=== PATIENT | female | born 1955 | race Caucasian/White ===

== ENCOUNTER 2016-04-10 09:45 | Outpatient (CLI) | payer BC | END 2016-04-10 09:46 | disposition home or self-care (01) | DX: Z12.31 Encounter for screening mammogram for malignant neoplasm of breast (principal); Z80.3 Family history of malignant neoplasm of breast ==

== ENCOUNTER 2016-04-10 09:46 | Outpatient (CLI) | payer BC | END 2016-04-10 09:47 | disposition home or self-care (01) | DX: M85.89 Other specified disorders of bone density and structure, multiple sites (principal); Z78.0 Asymptomatic menopausal state ==

== ENCOUNTER 2017-05-14 09:47 | Outpatient (CLI) | payer BC ==
--- NOTE | 2017-05-15 16:39 | Mammography Report ---
DIGITAL SCREENING MAMMOGRAM: 05/14/2017 CLINICAL INDICATION: A 61-year-old nulliparous patient with family history of breast cancer, history of benign left breast biopsy, for screening. COMPARISON: 03/2016, 01/2015, 01/2014, 11/2012, 11/2011, 08/2010, 07/2009. TECHNIQUE: Routine CC and MLO projections were obtained of the breasts. Bilateral laterally exaggerated craniocaudal views. FINDINGS: The breasts again demonstrate heterogeneously dense fibroglandular parenchyma bilaterally. Coarse and punctate, typically benign calcifications are present. Postbiopsy changes in the left upper outer posterior breast are stable. No suspicious masses, clustered microcalcifications, or regions of architectural distortion are identified. IMPRESSION: BENIGN FINDINGS. RECOMMENDATION: ROUTINE ANNUAL SCREENING UNLESS OTHERWISE CLINICALLY INDICATED. BIRADS CATEGORY 2-BENIGN FINDINGS. STANDARD QUALIFYING STATEMENTS: 1. This examination was reviewed with the aid of Computer-Aided Detection (CAD). 2. A negative or benign imaging report should not delay biopsy if clinically suspicious findings are present. Consider surgical consultation if warranted. More than 5% of cancers are not identified by imaging. 3. Dense breasts may obscure an underlying neoplasm. TD: 05/15/2017 16:38
== END 2017-05-14 09:48 | disposition home or self-care (01) ==
LOC: DI 09:47
PROVIDERS: ATTEND Physician Assistant
DX: Z12.31 Encounter for screening mammogram for malignant neoplasm of breast (principal); Z80.3 Family history of malignant neoplasm of breast
CPT/HCPCS: 77067

== ENCOUNTER 2017-05-14 10:00 | Outpatient (CLI) | payer BC ==
--- NOTE | 2017-05-14 13:54 | XRAY Report ---
THREE VIEW LEFT KNEE: 05/14/2017 CLINICAL INDICATION: Pain. FINDINGS: AP, lateral, sunrise views of the left knee demonstrate no evidence of fracture or dislocation. The joint spaces are preserved. No effusion is present. IMPRESSION: NORMAL LEFT KNEE. TD: 05/14/2017 13:53
== END 2017-05-14 10:01 | disposition home or self-care (01) ==
LOC: DI 10:00
PROVIDERS: ATTEND Physician Assistant
DX: M25.562 Pain in left knee (principal)

== ENCOUNTER 2018-05-19 12:28 | Outpatient (CLI) | payer BC, OTHER ==
--- NOTE | 2018-05-20 08:30 | Mammography Report ---
Reason: SCREENING MAMMO Procedure Date: 05/19/2018 Accession Number: [id number] / [id number] Procedure: NATHALIA - Screening Mammo w/Benjamin CPT Code: FULL RESULT: EXAM: Screening Mammo w/Benjamin DATE: 05/19/2018 1:02 PM CLINICAL HISTORY: Screening encounter. History of nulliparity and history of benign left breast biopsy. Family history of breast cancer in a sister in her 20s. TECHNIQUE: Bilateral CC and MLO views were obtained. A left laterally exaggerated CC view was obtained. COMPARISON: 05/14/2017 through 12/02/2012. FINDINGS: The breasts demonstrate heterogeneously dense fibroglandular parenchyma bilaterally. Postbiopsy changes in the left breast are stable. Coarse typically benign calcifications are noted. No suspicious masses, clustered microcalcifications, or regions of architectural distortion are identified. IMPRESSION: Benign findings RECOMMENDATION: Routine annual screening unless otherwise clinically indicated. BIRADS CATEGORY 2: Benign findings STANDARD QUALIFYING STATEMENTS: 1. This examination was not reviewed with the aid of Computer-Aided Detection (CAD). 2. A negative or benign imaging report should not delay biopsy if clinically suspicious findings are present. Consider surgical consultation if warrented. More than 5% of cancers are not identified by imaging. 3. Dense breasts may obscure an underlying neoplasm. 4. This examination was reviewed with the aid of 3D breast imaging (tomosynthesis).
== END 2018-05-19 12:29 | disposition home or self-care (01) ==
LOC: DI 12:28
DX: Z12.31 Encounter for screening mammogram for malignant neoplasm of breast (principal); Z80.3 Family history of malignant neoplasm of breast
CPT/HCPCS: 77063; 77067

== ENCOUNTER 2018-07-14 11:36 | Outpatient (CLI) | payer OTHER ==
--- NOTE | 2018-07-14 16:21 | XRAY Report ---
Reason: LEFT FOOT PAIN Procedure Date: 07/14/2018 Accession Number: [id number] / [id number] Procedure: XR - Foot 3 View RT CPT Code: FULL RESULT: EXAM: RIGHT FOOT RADIOGRAPHY EXAM DATE: 07/14/2018 11:55 AM. CLINICAL HISTORY: LEFT FOOT PAIN. COMPARISON: FOOT 3 VIEW LT 07/14/2018 11:47 AM. TECHNIQUE: 3 views. FINDINGS: Bones: Normal. No fractures or bone lesions. Joints: Right first metatarsophalangeal joint space narrowing. Soft Tissues: Normal. No soft tissue swelling. IMPRESSION: Right first metatarsophalangeal joint space narrowing. RADIA
--- NOTE | 2018-07-15 14:44 | XRAY Report ---
Reason: LEFT FOOT PAIN Procedure Date: 07/14/2018 Accession Number: [id number] / [id number] Procedure: XR - Foot 3 View LT CPT Code: FULL RESULT: EXAM: LEFT FOOT RADIOGRAPHY EXAM DATE: 07/14/2018 11:55 AM. CLINICAL HISTORY: Diffuse left foot pain. COMPARISON: FOOT 3 VIEW RT 07/14/2018 11:47 AM. TECHNIQUE: 3 views. FINDINGS: Bones: No acute fracture or bone lesion evident. Joints: There is mild first MTP joint space narrowing and early lateral osteophyte similar to the contralateral right foot. The remainder of the joint spaces are unremarkable. No malalignment. Soft Tissues: 2 linear metallic density foreign bodies are present in the plantar lateral midfoot soft tissues and together measure up to approximately 2 cm in length. A lateral bunion at the fifth MTP joint is noted. IMPRESSION: 1. 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 2. Posterolateral subcutaneous soft tissue metallic linear foreign bodies. RADIA
== END 2018-07-14 11:37 | disposition home or self-care (01) ==
LOC: DI 11:36
PROVIDERS: ATTEND Physician Assistant
DX: M19.072 Primary osteoarthritis, left ankle and foot (principal); M19.071 Primary osteoarthritis, right ankle and foot; M79.5 Residual foreign body in soft tissue

== ENCOUNTER 2019-06-08 07:36 | Outpatient (CLI) | payer MEDICARE, OTHER ==
--- NOTE | 2019-06-09 16:34 | Mammography Report ---
Reason: ROUTINE MAMMO Procedure Date: 06/08/2019 Accession Number: [id number] / [id number] Procedure: NATHALIA - Screening Mammo w/Benjamin CPT Code: Final Report FULL RESULT: EXAM: Screening Mammo w/Benjamin DATE: 06/08/2019 8:26 AM CLINICAL HISTORY: Routine screening. Nulliparous patient. History of lumpectomy and radiation therapy. Sister with breast cancer TECHNIQUE: (B) - Bilateral CC and MLO views were obtained. COMPARISON: 05/19/2018, 05/14/2017, 04/10/2016, 02/02/2015, 02/02/2014, 12/11/2012, 12/02/2012 and 11/26/2011 PARENCHYMAL PATTERN: (D) - The breasts demonstrate heterogeneously dense fibroglandular parenchyma bilaterally. FINDINGS: No significant interval change. Post therapeutic change left upper outer quadrant similar to previous. There are no suspicious masses, calcifications, or areas of distortion. There is motion on the right MLO projection and a technical repeat is suggested. IMPRESSION: Incomplete examination. BI-RADS category 0. Needs technical repeat right MLO projection for motion. RECOMMENDATION: (ADDMAM) - Recommend additional mammographic views. Repeat right MLO projection for motion. BI-RADS CATEGORY: (0) - Incomplete Examination - need additional evaluation. STANDARD QUALIFYING STATEMENTS: 1. This examination was not reviewed with the aid of Computer-Aided Detection (CAD). 2. A negative or benign imaging report should not preclude biopsy if clinically suspicious findings are present. 3. Dense breasts may obscure an underlying neoplasm. 4. This examination was reviewed with the aid of 3D breast imaging (tomosynthesis).
== END 2019-06-08 07:37 | disposition home or self-care (01) ==
LOC: DI 07:36
DX: Z12.31 Encounter for screening mammogram for malignant neoplasm of breast (principal); Z80.3 Family history of malignant neoplasm of breast
CPT/HCPCS: 77063; 77067

== ENCOUNTER 2019-08-18 12:51 | Outpatient (CLI) | payer MEDICARE, OTHER ==
--- NOTE | 2019-08-26 09:15 | Mammography Report ---
UNILATERAL LEFT DIGITAL SCREENING MAMMOGRAM 3D/2D WITH CAD: 08/18/2019 CLINICAL: Patient here for technical repeat Left MLO due to motion on screening done 06/08/19. Comparison is made to exams dated: 06/08/2019 mammogram, 05/29/2018 mammogram, 05/14/2017 mammogram, mammogram, and 02/02/2015 mammogram - [facility]. The tissue of left breas t is heterogeneously dense. This may lower the sensitivity of mammography. Current study was also evaluated with a Computer Aided Detection (CAD) system. There are benign calcifications in the left breast. There also are benign post operative findings in the left breast. No significant masses, calcifications, or other findings are seen in the breast. There has been no significant interval change. IMPRESSION: There is no mammographic evidence of malignancy. A 1 year screening mammogram is recommended. This exam was interpreted at Station ID: [id number]. NOTE: For mammograms, a report in lay terms will be sent to the patient. Approximately 15% of breast malignancies will not be visualized mammographically. In the management of a palpable breast mass, a negative mammogram must not discourage biopsy of a clinically suspicious lesion. Electronically Signed By: Carlos Palacios M.D. ddp/penjuve:08/25/2019 12:53:42 ACR BI-RADS Category 2: Benign Finding(s) 3342F PARENCHYMAL PATTERN: (D) - The breast(s) demonstrate(s) heterogeneously dense fibroglandular dean woodard. BI-RADS CATEGORY: (2) - 2 RECOMMENDATION: (ANNUAL) - Recommend routine annual screening mammography. [id number] 1 year screening LATERALITY: (B)
== END 2019-08-18 12:52 | disposition home or self-care (01) ==
LOC: DI 12:51
DX: Z12.31 Encounter for screening mammogram for malignant neoplasm of breast (principal)
CPT/HCPCS: 77063; 77067

== ENCOUNTER 2020-03-17 09:08 | Outpatient (CLI) | payer MEDICARE, OTHER ==
--- NOTE | 2020-03-17 10:35 | DEXA Report ---
PROCEDURE: Dexa Spine and/or Hip INDICATIONS: OSTEOPENIA TECHNIQUE: Dual energy x-ray absorptiometry (DXA) was performed on a BioCision System. Regions measur ed are the AP Spine, femoral neck, and if needed forearm. COMPARISON: None. FINDINGS: Lumbar Spine: Bone Mineral Density 1.208 g/cm/cm,T score -1.4, osteopenia Left total Hip: Bone Mineral Density 0.850 g/cm/cm,T score -1.3, osteopenia Left Femoral Neck: Bone Mineral Density 0.823 g/cm/cm, T score -1.5, osteopenia (T score greater or equal to -1.0: NORMAL) (T score from -1.1 to -2.4: OSTEOPENIA) (T score less than or equal to -2.5 to: OSTEOPOROSIS) Impression: Bone mineral density consistent with osteopenia. Bone mineral density in the lumbar spine is -3.4% compared to the prior bone scan on 04/10/2016 suggesting interval bone loss. Bone mineral de nsity in the left proximal femur is not significantly changed. Patients with diagnosis of osteoporosis or osteopenia should have regular bone mineral density assess ment. For those eligible for Medicare, routine testing is allowed once every 2 years. Testing frequ ency can be increased for patients who have rapidly progressing disease or for those who are receivin g medical therapy to restore bone mass. Reviewed by: Yogesh Baldwin on 03/17/2020 10:33 AM MEGHNA Approved by: Yogesh Baldwin on 03/17/2020 10:33 AM PST Station ID: [id number]
== END 2020-03-17 09:09 | disposition home or self-care (01) ==
LOC: DI 09:08
PROVIDERS: ATTEND Internal Medicine
DX: M85.89 Other specified disorders of bone density and structure, multiple sites (principal); M90.80 Osteopathy in diseases classified elsewhere, unspecified site

== ENCOUNTER 2021-10-04 07:48 | Outpatient (CLI) | payer MEDICARE, OTHER ==
--- NOTE | 2021-10-04 17:35 | Mammography Report ---
BILATERAL DIGITAL DIAGNOSTIC MAMMOGRAM 3D/2D WITH LATEROMEDIAL: 10/04/2021 CLINICAL: Rt breast lump, due for bilateral screening. pt states no longer feels lump at time of exam , states it was a bruise with redness and has since gone. Comparison is made to exams dated: 06/08/2019 mammogram, 08/18/2019 mammogram, 05/29/2018 mammogram, 04/19 mammogram, and 05/14/2017 mammogram - [facility]. The tissue of both breasts is heterogeneously dense. This may lower the sensitivity of mammography. No significant masses, calcifications, or other findings are seen in either breast. Left breast scar. IMPRESSION: INCOMPLETE: NEEDS ADDITIONAL IMAGING EVALUATION No mammographic evidence of malignancy. A targeted ultrasound is recommended in the region of the right breast area of concern and will immed iately follow. This exam was interpreted at Station ID: [id number]. NOTE: For mammograms, a report in lay terms will be sent to the patient. Approximately 15% of breast malignancies will not be visualized mammographically. In the management of a palpable breast mass, a negative mammogram must not discourage biopsy of a clinically suspicious lesion. Electronically Signed By: Tyler Briscoe M.D. slc/:10/04/2021 08:51:23 ACR BI-RADS Category 0: Incomplete 3340F PARENCHYMAL PATTERN: (D) - The breast(s) demonstrate(s) heterogeneously dense fibroglandular paramerica woodard. BI-RADS CATEGORY: (0) - 0 Ultrasound [id number] Immediate follow-up LATERALITY: (B)
--- NOTE | 2021-10-04 17:35 | Ultrasound Report ---
LIMITED ULTRASOUND OF RIGHT BREAST: 10/04/2021 CLINICAL: Right breast lump. Comparison is made to exams dated: 10/04/2021 mammogram, 08/18/2019 mammogram, 06/08/2019 mammogram, 05/16 mammogram, 05/14/2018 mammogram, and 05/14/2017 mammogram - [facility]. Real-time ultrasound of the right breast lower outer quadrant was performed. Kerns scale images of th e real-time examination were reviewed. No significant abnormalities were seen sonographically in the right breast. IMPRESSION: NEGATIVE There is no sonographic evidence of malignancy. Exam findings were conveyed to the patient. Patient is advised to monitor for significant change. Cli nical follow-up as needed. A 1 year screening mammogram is recommended. This exam was interpreted at Station ID: [id number]. Electronically Signed By: Tyler Briscoe M.D. slc/:10/04/2021 09:33:13 Ultrasound BI-RADS: 1 Negative BI-RADS CATEGORY: (1) - 1 RECOMMENDATION: (ANNUAL) - Recommend routine annual screening mammography. [id number] 1 year screening LATERALITY: (B)
== END 2021-10-04 07:49 | disposition home or self-care (01) ==
LOC: DI 07:48
PROVIDERS: ATTEND Internal Medicine
DX: N63.12 Unspecified lump in the right breast, upper inner quadrant (principal)